=== PATIENT | female | born 1990 | race Two or more races ===

== ENCOUNTER → 2021-10-01 16:48 | Outpatient (CLI) | payer BC, SELFPAY | PROVIDERS: Visit Provider Nurse Practitioner | DX: Z20.822 Contact with and (suspected) exposure to COVID-19 (principal) | CPT/HCPCS: C9803; U0003; U0005 ==

== ENCOUNTER 2022-09-07 13:02 | Emergency (ER) | payer BC, SELFPAY ==
[2022-09-07 13:15] VITALS: BP 131/76; PULSE 118; RESP 19; TEMP 37.7; O2SAT 98; BMI 22.4
[2022-09-07 13:25] LABS: Influenza A, PCR Not Detected (NotDetected); Influenza B, PCR Not Detected (NotDetected)
--- NOTE | 2022-09-07 13:42 | EXP.UTC ---
Discharge Plan Disposition Patient Disposition: Home, Self-Care Condition: Good Prescriptions Prescriptions: No Action norethindrone-e.estradiol-iron [] 1 mg-20 mcg (24)/75 mg (4) tablet 1 tab PO DAILY Qty: 84 3RF Referrals Follow up/Referrals: Provider,Referral, MD [Primary Care Provider] - See instructions Activity Restrictions/Add. Instructions Additional Instructions/Restrictions: covid/flu swab was sent to lab, call tomorrow for results. self isolate until test results are known to be negative No sign of a bacterial infection. Likely viral. Viruses can take 7-14 days to run their course. Nasal saline and bulb syringe or nose Ada to remove nasal drainage to help with nasal congestion. Hard to eat, drink, sleep with nasal congestion so important to keep this cleaned out. Monitor temp. Tylenol or Motrin as needed for pain or fever Encourage fluids, water, Gatorade, Powerade, Pedialyte if /toddler/child Warm salt water gargles Warm fluids Sore throat lozenges Sleep elevated Humidifier/vaporizer Follow-up immediately for new or worsening symptoms or no noticeable improvement over the next 48-72 hours. Clinical Impressions Clinical Impression: Upper respiratory infection, viral Instructions Patient Instructions: DI for Viral Upper Respiratory Infection -- Adult Discharge ED Provider: Mathew ([facility])Sena [facility] [place] HPI General Stated complaint: drainage, fever, sore throat Mode of Arrival: Ambulatory Source of Information: Patient Limitations: No Limitations Time Seen by Provider: 09/07/22 13:42 Description of Symptoms (Recalled from Triage Doc. by RN): PATIENT CO FEVER, BODY ACHES, CHILLS, COUGH AND SORE THROAT SINCE FRIDAY HEENT Symptoms (Recalled from RN notes): Yes Resp Symptoms (Recalled from RN notes): Yes Skin Symptoms (Recalled from RN notes): No MS Symptoms (Recalled from RN notes): No Functional Status (Recalled from RN notes): WNL History of Present Illness Provider Complaint: 32 yr old female presents for fever,sore throt, cough,body aches and chills since Related Data Previous Rx's Medication Instructions Recorded norethindrone 1 mg-ethinyl 1 tab PO DAILY #84 tabs 11/12/21 estradiol 20 mcg (24)-iron 75 mg (4) tablet () Allergies Allergy/AdvReac Type Severity Reaction Status Date / Time Penicillins Allergy Mild Verified 07/22/22 15:41 amoxicillin Allergy Verified 09/07/22 13:28 cefixime [From Suprax] Allergy Verified 07/22/22 15:41 minocycline Allergy Verified 07/22/22 15:41 Worker's Comp Is this a Worker's Comp case?: No [facility] Disclaimer: The information contained in this section may have been updated after the patient was seen, as this information can be updated by other users. Medical History , [employer]) Kidney stone Surgical History , [employer]) History of repair of ACL Social History , [employer]) Smoking Status: Never smoker alcohol intake: never current occupational status: employed Travel in the last 8 weeks: None household members: family housing: house ROS Obtained: Yes All systems reviewed & no additional complaints except as documented Constitutional Constitutional: Reports system reviewed and no additional complaints, except as documented, Reports as per HPI, Reports body ache, Reports chills and Reports fever(s) Eyes Eyes: Reports system reviewed and no additional complaints, except as documented and Reports as per HPI ENT Ears, Nose, Mouth, and Throat: Reports system reviewed and no additional complaints, except as documented and Reports as per HPI Cardiovascular Cardiovascular: Reports system reviewed and no additional complaints, except as documented and Reports as per HPI Respiratory Respiratory: Reports system reviewed and no additional complaints,
[2022-09-07 13:43] LABS: UTC Strep Screen (Rapid) Negative (Negative)
[2022-09-07 13:45] VITALS: BP 131/76; PULSE 118; RESP 19; TEMP 37.7; O2SAT 98
[2022-09-07 15:06] LABS: Coronavirus 19, PCR Detected (NotDetected)
== END 2022-09-07 13:48 | disposition home or self-care (01) ==
PROVIDERS: Emergency Provider Nurse Practitioner Family
DX: U07.1 COVID-19 (principal)
CPT/HCPCS: 87880; 99212; C9803; G0463; U0003; U0005

== ENCOUNTER 2023-10-14 14:18 | Outpatient (POV) | payer BC, SELFPAY | END 2023-10-14 23:59 | disposition home or self-care (01) | LOC: SC 14:18 | PROVIDERS: PCP Nurse Practitioner Family; Visit Provider Dermatology | DX: Z00.00 Encounter for general adult medical examination without abnormal findings (principal) ==